=== PATIENT | male | born 2000 | race African-American/Black ===

== ENCOUNTER 2019-04-30 17:21 | Emergency (ER) | payer OTHER ==
[2019-04-30 17:36] VITALS: BMI 20.6
[2019-04-30] MEDS ORDERED: traMADol HCL 50 MG TABLET PO ONE (18:04)
[2019-04-30] MEDS ORDERED: KETOROLAC TROMETHAMINE 60 MG/2 ML VIAL IM ONE (18:04)
[2019-04-30] MEDS ORDERED: KETOROLAC TROMETHAMINE 60 MG/2 ML VIAL ONE (18:05)
[2019-04-30] MEDS ORDERED: traMADol HCL 50 MG TABLET ONE (18:05)
[2019-04-30] MEDS ORDERED: DIPHTH,PERTUSS(ACELL),TET 0.5 ML DISP.SYRIN IM ONE ×2 (18:11→18:16)
--- NOTE | 2019-04-30 18:13 | PDOC ---
History of Present Illness - General Chief Complaint: Pain Stated Complaint: FOOT INJURY Time Seen by Provider: 04/30/19 17:40 History Source: Patient - History of Present Illness Occurred: reports: this evening Pain Location: reports: lower extremity Past History - Past Medical History Allergies/Adverse Reactions: Allergies Allergy/AdvReac Type Severity Reaction Status Date / Time No Known Allergies Allergy Verified 04/30/19 17:37 Home Medications: Ambulatory Orders NK [No Known Home Medication] 04/30/19 - Psycho Social/Smoking Cessation Hx Smoking History: Never smoked Hx Alcohol Use: No Drug/Substance Use Hx: No Review of Systems - Review of Systems Musculoskeletal: Yes: Joint Pain, Joint Swelling *Physical Exam - Vital Signs Last Vital Signs Temp Pulse Resp BP Pulse Ox 98.1 F 61 20 140/96 100 04/30/19 17:28 04/30/19 17:28 04/30/19 17:28 04/30/19 17:28 04/30/19 17:28 - Physical Exam General Appearance: Yes: Appropriately Dressed, Severe Distress HEENT: positive: Normal Voice Respiratory/Chest: negative: Respiratory Distress Extremity: positive: Other (L foot strinkingly swollen diffusely w/ abrasion noted over dorsum of L 1st metatarsal w/ bone palpated, unable to palpate pedal pulses 2/2 swelling, skin warm to touch w/ cap refill and sensation intact) Integumentary: positive: Dry, Warm Neurologic: positive: Fully Oriented, Alert, Normal Mood/Affect Procedures - Splinting Splint Location: Left: Foot Hand-Made Type: orthoglass Splint Type: Yes: Posterior Alberto Bandage: 4" (2) ED Treatment Course - RADIOLOGY Radiology Studies Ordered: Category Date Time Status ANKLE & FOOT-LEFT* [RAD] Stat Radiology 04/30/19 18:03 Ordered Medical Decision Making - Medical Decision Making 04/30/19 18:08 18-year-old male, no significant history, here with severe pain and swelling to L foot s/p crush injury today at work. Patient states he fell off a fork lift today after his fork lift collided with another fork lift. States his L foot got caught between the 2 fork lifts. Unable to bear weight since See exam Crush injury to L foot High suspicion for open fx based on exam, unable to palpate pulses 2/2 sig swelling, however cap refill and sensation intact w/ warm extremity so doubt compartment syndrome at this time but will continue to rpt exam in ED -pain control -Tetanus -betadine soak -Ortho c/s 04/30/19 18:35 XR w/ comminuted fx to L 1st metatarsal. Dose of Ancef in progress for open fx. Tetanus updated and pain presently controlled w/ meds. A/w ortho c/s 04/30/19 19:[address] Valenzuela of ortho who suggested that patient be transferred. I then contacted Dr. Torres of podiatry who pointed out that in addition to metatarsal fracture, patient also has a Lisfranc deformity and suggested transfer. I spoke to Dr. Montano of ortho at [facility] and patient was accepted as of 7:50 PM for ER to ER transfer at [facility]. I then spoke to Dr. Knox, ED attending at [facility], who accepted transfer. Per discussion with ortho, will keep patient NPO and place posterior splint in ED. Pt will m/ l get CT at [facility] per MD. Face sheet faxed and transfer form filled out. XR sent over to [facility] via PACs. Will obtain CD from radiology 04/30/19 20:50 EMS arrived in ED and pt transported out Discharge - Discharge Information Problems reviewed: Yes Clinical Impression/Diagnosis: Foot fracture, left Qualifiers: Encounter type: initial encounter Fracture type: open Qualified Code(s): S92.902B - Unspecified fracture of left foot, initial encounter for open fracture Lisfranc dislocation Qualifiers: Encounter type: initial encounter Laterality: left Qualified Code(s): S93.325A - Dislocation of tarsometatarsal joint of left foot, initial encounter Condition: Fair Disposition: TRANSFER ACUTE CARE/OTHER HOSP - Follow up/Referral - Patient Discharge Instructions - Post Discharge Activity - Transfer to Acute Care Facility Receiving Facility Name: [facility]
[2019-04-30] MEDS ORDERED: CEFAZOLIN 1 GM in DEXTROSE 5%-WATER - 50 ML IVPB ONE (18:35)
[2019-04-30] MEDS ORDERED: CEFAZOLIN 1 GM/D5W 1 GM/50 ML BAG ONE (18:40)
[2019-04-30 21:13] VITALS: BP 117/60; PULSE 71; TEMP 99
== END 2019-04-30 21:02 | disposition short-term general hospital (02) ==
LOC: JERFT 17:21 → JER 17:21
PROC: 3E03329 Introduction of Other Anti-infective into Peripheral Vein, Percutaneous Approach (ICD-10-PCS; principal; 2019-04-30)
PROC: 3E0233Z Introduction of Anti-inflammatory into Muscle, Percutaneous Approach (ICD-10-PCS; 2019-04-30)
PROC: 3E0234Z Introduction of Serum, Toxoid and Vaccine into Muscle, Percutaneous Approach (ICD-10-PCS; 2019-04-30)
PROC: 2W3RX1Z Immobilization of Left Lower Leg using Splint (ICD-10-PCS; 2019-04-30)
DX: S92.902B Unspecified fracture of left foot, initial encounter for open fracture (principal); S93.325A Dislocation of tarsometatarsal joint of left foot, initial encounter; W23.0XXA Caught, crushed, jammed, or pinched between moving objects, initial encounter; Y93.89 Activity, other specified; Y92.89 Other specified places as the place of occurrence of the external cause; Y99.0 Civilian activity done for income or pay
CPT/HCPCS: 73610-TC-LT-FY; 73630-TC-LT; 90715; 99284-25

== ENCOUNTER 2020-08-30 12:52 | Emergency (ER) | payer SELFPAY ==
[2020-08-30 13:05] VITALS: BP 132/59; PULSE 70; TEMP 97
== END 2020-08-30 13:49 | disposition home or self-care (01) ==
LOC: JER 12:52 → JERFT 12:52
DX: S61.512A Laceration without foreign body of left wrist, initial encounter (principal); Y99.9 Unspecified external cause status; Z48.00 Encounter for change or removal of nonsurgical wound dressing
CPT/HCPCS: 99281-25